=== PATIENT | male | born 1985 | race Caucasian/White ===

== ENCOUNTER 2020-02-17 01:08 | Emergency (ER) | payer OTHER, SELFPAY ==
[2020-02-17 01:22] VITALS: BP 133/74; PULSE 67; RESP 20; TEMP 36.7; O2SAT 97
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
[2020-02-17 03:33] LABS: HIV 1/2 Ab P24 Ag Result Negative (Negative)
== END 2020-02-17 03:31 | disposition home or self-care (01) ==
PROVIDERS: Emergency Provider General Practice; PCP Family Medicine
DX: Z20.6 Contact with and (suspected) exposure to human immunodeficiency virus [HIV] (principal); Z87.891 Personal history of nicotine dependence
CPT/HCPCS: 36415; 86703; 99283; G0432

== ENCOUNTER → 2023-05-14 07:45 | Outpatient (CLI) | payer OTHER, SELFPAY ==
--- NOTE | ~2023-05-14 | US_ITS ---
EXAMINATION: US soft tissue abdomen INDICATION: Umbilical mass TECHNIQUE: Targeted ultrasound is performed in the area of clinical interest. COMPARISON: None available FINDINGS: No discrete sonographically detected mass is identified separate from the umbilicus. The ar ea of clinical concern appears to be contiguous with the umbilicus, possibly reflecting inflammation. IMPRESSION: 1. Probable area of small inflammatory change associated with the umbilicus in the area of clinical c oncern. Consider further evaluation with CT. Reviewed, dictated and finalized at location B. PROJECTOR OPERATOR IMPRESSION: 1. Probable area of small inflammatory change associated with the umbilicus in the area of clinical concern. Consider further evaluation with CT.
== END ==
PROVIDERS: PCP Nurse Practitioner Family; Visit Provider Nurse Practitioner Family
DX: R19.05 Periumbilic swelling, mass or lump (principal)
CPT/HCPCS: 76705

== ENCOUNTER → 2023-05-20 10:04 | Outpatient (CLI) | payer OTHER, SELFPAY ==
--- NOTE | ~2023-05-20 | CT_ITS ---
EXAMINATION: CT abdomen wo con DATE: 05/20/2023 10:21 INDICATION: Umbilical mass TECHNIQUE: Computed tomography (CT) of the abdomen and pelvis was performed without intravenous contr ast. Automated exposure control and iterative reconstruction technique were employed. Exam dose: 349 .03 mGy-cm total exam DLP. COMPARISON: 05/14/2023 Ultrasound soft tissue abdomen FINDINGS: The lung bases are clear of infiltrate or consolidation. Normal heart size. No pericardial or pleural effusion. The liver, gallbladder, bile ducts, spleen, pancreas, pancreatic duct, and adrenal glands and kidney s appear normal on this limited noncontrast examination. No urinary tract calculus or hydroureteronep hrosis. Normal caliber of the abdominal aorta. No intraperitoneal or retroperitoneal mass lesion or a denopathy or ascites is detected. A portion of the normal-appearing appendix appears to be visualized on the lowermost image. There is a very small fat-containing umbilical hernia. There is mild soft tissue thickening subjacent to the umbilicus and mild focal right periumbilical fat stranding, likely due to inflammation or inf ection. No subcutaneous emphysema. No intraperitoneal free air. No abnormal fluid collection to sugge st abscess.. Transitional lumbosacral vertebra. IMPRESSION: Focal nonspecific periumbilical inflammatory changes; no abscess is identified Reviewed, dictated and finalized at [facility]. Reviewed, dictated and finalized at location L. S FARMWORKER IMPRESSION: Focal nonspecific periumbilical inflammatory changes; no abscess i s identified
== END ==
PROVIDERS: PCP Family Medicine; Visit Provider Nurse Practitioner Family
DX: R93.89 Abnormal findings on diagnostic imaging of other specified body structures (principal); Q89.9 Congenital malformation, unspecified; R10.9 Unspecified abdominal pain
CPT/HCPCS: 74150

== ENCOUNTER 2024-02-23 10:45 | Day surgery (SDC) | payer OTHER, SELFPAY ==
[2024-01-24 09:31] VITALS: BMI 29.5
[2024-02-08 13:44] VITALS: BMI 29.3
--- NOTE | 2024-02-22 15:38 | WPDANESEPPF ---
Anes - Initial Pre Proc Eval Procedure: Operation Date: 02/23/24 13:00 Proposed Procedures p Diagnostic Colonoscopy - Mikhail Dorman MD Date/Time: 02/22/24 15:38 Surgeon: Mikhail Dorman MD Pre Op Diagnosis: Hemorrhage of Anus and Rectum Patient Data Age: 38 Gender: M Height: 1.7 m Weight: 85 kg Allergies Allergy/AdvReac Type Severity Reaction Status Date / Time Penicillins Allergy Unknown Unknown Verified 02/23/24 11:45 Home Medications Medication Instructions Recorded Confirmed Type No Home Medications 02/23/24 02/23/24 History Patient hx anesthesia problems: none Family hx anesthesia problems: none Results Review: All pre-operative results and documents have been reviewed as part of the pre-operative evaluation. [facility] Past Medical History Medical History (Updated 01/18/24 @ 09:47 by Kaci Maxwell APN-Myriam) Blood tests for routine general physical examination Cyst Encounter to establish care with new doctor Exposure to hepatitis Fecal urgency Irritable bowel syndrome with alternating bowel habits Pain in abdomen on palpation Patient denies medical problems Rectal bleeding Umbilical bleeding Umbilical cyst Surgical History Surgical History H/O vasectomy Family History Family History Father Diabetes mellitus Family history of coronary artery disease Mother Skin cancer Other Family history of allergic disorder Hypertension Social History Social History Social History: Caffeine-daily Smoking status: Light tobacco smoker Tobacco type: cigars Second hand tobacco smoke exposure: No Smoking end date: 05/17/14 Alcohol intake: current Alcohol use details: occasionally Substance use: never Substance use type: does not use Living arrangements: with family Occupation/Education: occupation 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 Gender identity (if verbalized by the patient): Male Sexual Orientation (if Verbalized by the Patient): Straight or Heterosexual Spiritual care concerns: No Anes - Eval Final PreProcedure Day of Procedure 02/22/24 15:38 Patient weight: overweight Heart: regular rate and rhythm Lungs: clear to auscultation Airway: Mallampati scale class II Neurological: alert and oriented Last oral intake: >/= 8 hours ASA classification: II Emergent: no Anesthetic plan: proceed Anesthesia type and monitoring: general GIVS and standard monitoring Results Review: All pre-operative results and documents have been reviewed as part of the pre-operative evaluation. Informed Consent: The patient's anesthetic plan and its attendant risks and benefits were discussed with the patient/family/POA. Questions were solicited and answers provided to the satisfaction of the patient/family/POA.
[2024-02-23 11:46] VITALS: BP 145/84; PULSE 72; RESP 16; TEMP 37.1; O2SAT 100
[2024-02-23] MEDS: LACTATED RINGERS 1,000 ML 150 ML IV CONT (11:49)
--- NOTE | 2024-02-23 12:00 | PM.HPGS ---
History of Present Illness History of Present Illness Consent: Risks, benefits, and alternatives have been discussed and questions answered. Patient agrees to proceed with procedure. Chief complaint: Hemorrhage of Anus and Rectum Narrative: Rk Morgan is a 38 year old male presents for colonoscopy. Patient reports having bright red blood per rectum. He reports blood on the outside of his stools. Typically after hard bowel movement. Most recent episode 6-8 weeks ago lasted with small amounts, off and on for 3 days . Family history noncontributory. Patient denies any weight loss. No ongoing abdominal pain. Review of Systems Review of Systems: All systems reviewed & are unremarkable except as noted in HPI and below PMFSH Past Medical History Medical History (Updated 01/18/24 @ 09:47 by DAKOTAH Brown) Blood tests for routine general physical examination Cyst Encounter to establish care with new doctor Exposure to hepatitis Fecal urgency Irritable bowel syndrome with alternating bowel habits Pain in abdomen on palpation Patient denies medical problems Rectal bleeding Umbilical bleeding Umbilical cyst Surgical History Surgical History H/O vasectomy Family History Family History Father Diabetes mellitus Family history of coronary artery disease Mother Skin cancer Other Family history of allergic disorder Hypertension Social History Social History Social History: Caffeine-daily Smoking status: Light tobacco smoker Tobacco type: cigars Second hand tobacco smoke exposure: No Smoking end date: 05/17/14 Alcohol intake: current Alcohol use details: occasionally Substance use: never Substance use type: does not use Living arrangements: with family Occupation/Education: occupation 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 Gender identity (if verbalized by the patient): Male Sexual Orientation (if Verbalized by the Patient): Straight or Heterosexual Spiritual care concerns: No Meds Home Medications and Allergies Home Medications Medication Instructions Recorded Confirmed Type No Home Medications 02/23/24 02/23/24 History Allergies Allergy/AdvReac Type Severity Reaction Status Date / Time Penicillins Allergy Unknown Unknown Verified 02/23/24 11:45 Vital Signs Vital Signs - 24 hr 02/23/24 11:46 Temperature 98.7 F Pulse Rate 72 Respiratory Rate 16 Blood Pressure 145/84 H Pulse Oximetry 100 Oxygen Delivery Room Air Exam Narrative: Physical exam reveals patient to be alert. Vital signs stable. HEENT he exam is unremarkable. Is anicteric. Lungs are clear to auscultation and to percussion. Heart is without murmur or extra sounds. Abdomen bowel sounds are present soft nontender with no organomegaly. Digital and external rectal exam is normal. Assessment and Plan Assessment and plan (1) Rectal bleeding: Code(s): K62.5 - Hemorrhage of anus and rectum Status: Acute Assessment and Plan: brief history of rectal bleeding, most suspicious for internal hemorrhoids. Other lesions will be excluded by colonoscopy. High-fiber diet advised. Further recommendations may be given after endoscopy.
[2024-02-23] MEDS: SIMETHICONE ORAL SUSPENSION 20 MG/0.3 ML 30 ML BOTTLE 0.6 ML IRRIGATION (13:15)
[2024-02-23 13:24] VITALS: BP 103/63; PULSE 71; RESP 22; O2SAT 98
--- NOTE | 2024-02-23 13:26 | WPDANESPN ---
Anes - Prog Note Post-Op Date/Time: 02/23/24 13:26 Cardiovascular status: normal Respiratory status: normal Airway patency: baseline Mental status: baseline Post-Op hydration status: normal Vital Signs: Last Vital Signs Temp 37.1 C 02/23/24 11:46 Pulse 72 02/23/24 11:46 Resp 16 02/23/24 11:46 BP 145/84 H 02/23/24 11:46 Pulse Ox 100 02/23/24 11:46 O2 Del Method Room Air 02/23/24 11:46 Pain Score (VAS): 0 I/O: Intake & Output 02/22/24 02/23/24 02/23/24 23:59 07:59 15:59 Intake Total 600 Balance 600 Post-procedural complaints: none Patient Feedback: Patient satisfied with anesthetic care. Other Findings: Patient vital signs back to baseline. Patient denies nausea and vomiting. Patient's pain under control. Patient OK for discharge.
[2024-02-23 13:34] VITALS: BP 115/67; PULSE 59; RESP 20; O2SAT 100
[2024-02-23 13:44] VITALS: BP 118/63; PULSE 63; RESP 20; O2SAT 100
== END 2024-02-23 13:50 | disposition home or self-care (01) ==
PROVIDERS: PCP Family Medicine; Visit Provider Internal Medicine Gastroenterology
PROC: 0DJD8ZZ Inspection of Lower Intestinal Tract, Via Natural or Artificial Opening Endoscopic (ICD-10-PCS; CPT 45378; principal; 2024-02-23 13:00)
DX: K62.5 Hemorrhage of anus and rectum (principal)
CPT/HCPCS: 45378